=== PATIENT | female | born 1985 | race Caucasian/White ===

== ENCOUNTER 2017-09-20 10:10 | Emergency (ER) | payer BC, OTHER ==
[~2017-09-20] VITALS: Ht 162.6 cm; Wt 80.7 kg
[~2017-09-20 10:10] MED LIST: DEPA500T PO; LORTA5 PO; NAPR220T95 OR
[2017-09-20 10:15] VITALS: BP 101/64; PULSE 109; RESP 22; TEMP 97.7; O2SAT 97
[2017-09-20 10:50] VITALS: BP 103/65; PULSE 95
[2017-09-20 10:52] VITALS: RESP 18; TEMP 97.8
[2017-09-20] MEDS ORDERED: OSEL75 PO (11:38)
--- NOTE | 2017-09-20 11:38 | PD ---
HPI Chief Complaint Bodyaches, runny nose, cough for the past 24 hours Date Seen: Sep 20, 2017 Time Seen: 11:31 Travel History International Travel<30 Days: No Contact w/Intl Traveler<30Days: No Known Affected Area: No History of Present Illness HPI 31-year-old who is at 35 weeks gestation comes in complaining of upper respiratory symptoms of runny nose, cough, sneezing, and body aches for the past 24 hours. She states it came upon her suddenly and she does not have a thermometer at home but felt very febrile hot chills this morning. She denies having a influenza vaccine during this and states that she has been directly exposed 2 children at her facility that were diagnosed with influenza. Patient has no nausea vomiting she's able to tolerate fluids well he is been seen by [facility] for her OB care patient states that she's had no OB antepartum complications. Weeks Gestation: 35 Para: 2 : 3 History Past Medical History Medical History: Denies Significant Hx Obstetric History Obstetric History Spontaneous vaginal delivery followed by section Past Surgical History Narrative Surgical section Family History Family History: Negative Social History Alcohol Use: No Tobacco Use: No Substance Abuse: No Allergies-Medications (Allergen,Severity, Reaction): Coded Allergies: No Known Allergies (Verified Adverse Reaction, Unknown, 09/20/17) Home Meds Reported Medications Divalproex Sodium 500 mg (Depakote 500 mg) 500 Mg Tab, 500 MG PO TID 12/27/12 Hydrocodone/Acetaminophen 5 mg/325 mg (Hydrocodone/Acetaminophen 5 mg/325 mg) 1 Tab Tab, 1 TAB PO Q6HPRN 10/28/12 Naproxen Sodium (Aleve) 220 Mg Tab, 220 MG OR 09/16/12 Review of Systems Except as stated in HPI: all other systems reviewed are Neg Physical Exam Vital Signs Date Time Temp Pulse Resp B/P (MAP) Pulse Ox O2 Delivery O2 Flow Rate FiO2 09/20/17 10:52 97.8 18 09/20/17 10:50 95 103/65 (78) 09/20/17 10:15 97.7 109 22 101/64 (76) 97 Narrative GENERAL: Well-nourished, well-developed patient. SKIN: Warm and dry. HEAD: Normocephalic and atraumatic. EYES: No scleral icterus. No injection or drainage. ENT: No nasal drainage noted. Mucous membranes pink. Airway patent. NECK: Supple, trachea midline. No JVD. CARDIOVASCULAR: Regular rate and rhythm without murmurs, gallops, or rubs. RESPIRATORY: Breath sounds equal bilaterally. No accessory muscle use. ABDOMEN/GI: Abdomen soft, non-tender, bowel sounds present, no rebound, no guarding Gravid to [-34] weeks size Fundal Height: [-] GENITOURINARY: Deferred External Genitalia: intact and normal in appearance BUS glands: [-] Cervix: [-] Dilatation: [-] Effacement: [-] Station: [-] Presentation: [-] Membranes: [intact or ruptured] Uterine Contractions: [-] FHT's: Category: [1-] Baseline: [-140] Reactive: [Moderate-] Variability: [Moderate-] Decels: [Absent-] EXTREMITIES: No cyanosis or edema. BACK: Nontender without obvious deformity. No CVA tenderness. NEUROLOGICAL: Awake and alert. Motor and sensory grossly within normal limits. Five out of 5 muscle strength in all muscle groups. Normal speech. Data Data Vital Signs Reviewed: Yes [facility] Medical Record Reviewed: Yes Plan 31-year-old who is at 35 weeks gestation with upper respiratory symptoms. Given her unvaccinated status and her exposure to others with influenza as well as her symptomatology within 24 hours her recommend that she consider Tamiflu Adequate hydration orally with the use of Tylenol and is necessary for temperatures over 101 Recommend the use of a thermometer for assessment of a fever. Diagnosis Diagnosis: Primary Impression: 35 weeks gestation of Additional Impression: Upper respiratory infection, viral Disposition: DISCHARGE HOME Scripts Oseltamivir (Tamiflu) 75 Mg Cap 75 MG PO BID for Mgmt Viral Infection for 5 Days, #10 CAP 0 Refills Prov: Britni Plata MD 09/20/17 Britni Plata MD Sep 20, 2017 11:38
== END 2017-09-20 11:52 | disposition home or self-care (01) ==
LOC: HOBED 10:10
DX: O99.513 Diseases of the respiratory system complicating pregnancy, third trimester (principal); J06.9 Acute upper respiratory infection, unspecified; Z3A.35 35 weeks gestation of pregnancy
CPT/HCPCS: 59025